=== PATIENT | female | born 1960 | race Caucasian/White ===

== ENCOUNTER 2025-01-17 06:09 | Observation (INO) ==
--- NOTE | 2025-01-10 16:10 | Anesthesiology Consultation ---
Date of Service January 10, 2025 Assessment & Plan (1) Encounter for pre-operative examination: Infectious disease screening: Per assessment on 01/10/25- No known recent infectious disease contacts or current infectious disease symptoms. Chart Review Chart Review: Acceptable Risk for Surgery and Patient NOT seen in Pre Admission Testing History Surgery Operation Date: 01/17/25 10:50 Proposed Procedures p Robotic Assisted Total Laparoscopic Hysterectomy, Bilateral Salpingo- Oophorectomy, Robotic Sacral Colpopexy and Cystoscopy - Dg Enriquez MD Height/Weight Height: 5 ft 9.5 in Weight: 95.254 kg Allergies Allergy/AdvReac Type Severity Reaction Status Date / Time No Known Allergies Allergy Verified 01/10/25 14:49 Medications Home Medications Medication Instructions Recorded Confirmed Last Taken docusate sodium 250 mg capsule 250 mg PO DAILY 01/10/25 01/10/25 Unknown (Stool Softener) magnesium oxide 250 mg PO DAILY 01/10/25 01/10/25 Unknown Past Medical History Medical History Anxiety r/t upcoming procedure Bilateral bunions Hiatal hernia "mild" Numbness and tingling of both feet Past Family History Family History Other No family history of adverse response to anesthesia Past Surgical History Surgical History History of bladder surgery 2023 - "bladder tack" History of excision of pilonidal cyst x2, in her 20's Hx of colonoscopy Social History Smoking Status: Never smoker Do You Dip or Chew Tobacco: No Hx Alcohol Use: Yes alcohol intake frequency: holidays/special occasions only Hx Substance Use: No substance use type: does not use Testing Laboratory Results 01/03/25 WBC 7.84 H/H 12.9/41.1 PLATELETS 338 SODIUM 140 POTASSIUM 4.1 CHLORIDE 100 CO2 25 BUN 13 CREATININE 0.7 GLUCOSE 91 Electrocardiogram Date: 01/03/25 Findings: + NSR @ (61)
--- NOTE | 2025-01-17 05:44 | History & Physical Report ---
Date of Service January 17, 2025 Assessment & Plan (1) Uterovaginal prolapse, incomplete: Plan: We initially attempted pessary placement however she was unable to tolerate it. She desires surgery. We discussed vaginal vs robotic approaches including risks and benefits. She elected for robotic hysterectomy, BSO, Sacral colpopexy, possible sling, and cystoscopy. Risks of infection, bleeding, injury, mesh exposure, chronic pain, urinary retention, and recurrence were discussed. All questions answered. Informed consent confirmed. Present on Admission?: Yes Admission and Anticipated Discharge Date Admission Date: 01/17/2025 Anticipated date of discharge: 01/18/25 History of Present Illness Chief Complaint: prolapse Primary Care Provider: NO PCP Ms. Adan is a 64 year old female presenting with concern of bladder prolapse. She reports pelvic pressure. She wears a thin pad liner and occasionally gets urine leakage. She uses one liner a day. She reports urinary leakage with strong coughs (like from a cold). She takes a stool softener to have one soft bowel movement a day. The patient has a history of 1 pregnancies and 1 children (vaginal). The patient denies using any topical estrogen or oral contraceptives. The patient denies a history of UTIs The patient drinks 2-3 cups of coffee a day. 1 packet of green tea. She is a nonsmoker. 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 She had an anterior colporrhaphy in November 2023 but then had a recurrence of her pelvic pressure symptoms and prolapse after resuming her regular activity. Allergies Allergy/AdvReac Type Severity Reaction Status Date / Time No Known Allergies Allergy Verified 01/10/25 14:49 Home Medications Medication Instructions Recorded Confirmed Type docusate sodium 250 mg capsule 250 mg PO DAILY 01/10/25 01/10/25 History (Stool Softener) magnesium oxide 250 mg PO DAILY 01/10/25 01/10/25 History Past Med/Surg History Problem List (Updated 01/17/25 @ 05:42 by Dg Enriquez MD) Uterovaginal prolapse, incomplete Encounter for pre-operative examination Medical History Anxiety r/t upcoming procedure Hiatal hernia "mild" Bilateral bunions Numbness and tingling of both feet Surgical History History of bladder surgery 2023 - "bladder tack" Hx of colonoscopy History of excision of pilonidal cyst x2, in her 20's Family History Other No family history of adverse response to anesthesia Social History Smoking Status: Never smoker Second Hand Exposure: No; Do You Dip or Chew Tobacco: No; Tobacco Cessation Education Requested by Patient: No Hx Alcohol Use: Yes Hx Substance Use: No Preferred Language: Lao Communication Ability: Effective Public Health Dietitian Required: No Beliefs That Will Affect Care: None Current Living Situation: Spouse Other Information That Helps Us Care for You: No Feels Safe at Home: Yes Safety Concerns: Feels Safe At This Time Assistive Devices: Glasses Review of Systems Review of Systems: All systems reviewed & are unremarkable except as noted in HPI & below Genitourinary: + urinary incontinence and + prolapse sy mptoms Physical Exam Constitutional: WD/WN, vitals as above Eyes: PERRL, conjunctivae normal, anicteric sclerae ENMT: external ear and nose normal, oropharynx normal Neck: trachea midline, no thyromegaly Respiratory: normal respiratory effort Cardiovascular: Rate/Rhythm: regular rate and regular rhythm Gastrointestinal (Abdomen): normal bowel sounds, soft, nontender, no hepatosplenomegaly Musculoskeletal: no cyanosis or clubbing, extremities motor strength 5/5 Skin: no rashes, warm and dry Psychiatric: A+Ox3, euthymic affect Results & Data Results & Data Laboratory Results Component Ref Range & Units (hover) 2 wk ago WBC 7.84 RBC 4.39 HGB 12.9 HCT 41.1 MCV 93.6 MCH 29.4 MCHC 31.4 RDW 14.4 PLT 338 MPV 10.1 Resulting Agency [facility] 57-10 Specimen Collected: 01/03/25 11:35 Last Resulted: 01/03/25 12:08 Component Ref Range & Units (hover) 2 wk ago BUN 13 CREATININE 0.7 EGFR >90 Comment: eGFR is calculated based on the CKD-EPI 2020 equation. SODIUM 140 POTASSIUM 4.1 CHLORIDE 100 CO2 25 ANION GAP 15 GLUCOSE 91 CALCIUM 10.1 Resulting Agency [facility] 57-10 Specimen Collected: 01/03/25 11:35 Last Resulted: 01/03/25 14:26 Code Status & VTE Plan VTE Prophylaxis Plan VTE Prophylaxis will be ordered: Yes
[2025-01-17] MEDS: metroNIDAZOLE 500 MG/100 ML BAG IV SCH (06:52)
[2025-01-17] MEDS: LR 15ML/HR IV SCH (06:52)
[2025-01-17] MEDS ORDERED: MIDAZOLAM HCL 1 MG/ML 2ML VIAL ONE (07:04)
[2025-01-17] MEDS ORDERED: LIDOCAINE 2% 2 ML VIAL/AMP(20MG/ML) INFIL ONE (07:07)
[2025-01-17] MEDS ORDERED: PROPOFOL IV EMULSION 10 MG/ML 20 ML VIAL IV ONE (07:07)
[2025-01-17] MEDS ORDERED: ROCURONIUM BROMIDE 10 MG/ML 5 ML VIAL IV ONE ×2 (07:38→08:37)
[2025-01-17] MEDS ORDERED: ATROPINE SULFATE 0.1 MG/ML 10ML SYR IV PRN (09:29)
[2025-01-17] MEDS ORDERED: HYDROmorphone INJ 2 MG/ML SYR/VIAL IV PRN (09:29)
[2025-01-17] MEDS ORDERED: PROMETHAZINE HCL 6.25 MG in SODIUM CHLORIDE 0.9% 50 ML IV PRN (09:29)
[2025-01-17] MEDS ORDERED: ONDANSETRON INJ 2 MG/ML 2 ML VIAL IV PRN ×2 (09:29→09:57)
[2025-01-17] MEDS: PREMARIN VAG CRM 14 APPLN/30 GM TUBE ONE (09:36)
[2025-01-17] MEDS: BUPIVACAINE 0.5 % 5 MG/1 ML MPF 30ML VIAL ONE (09:37)
[2025-01-17] MEDS ORDERED: MoRPHine SULFATE 2 MG/ML CARP ONE (09:38)
[2025-01-17] MEDS ORDERED: ONDANSETRON INJ 2 MG/ML 2 ML VIAL ONE (09:38)
[2025-01-17] MEDS ORDERED: SUGAMMADEX SODIUM 200 MG/2 ML VIAL IV ONE (09:38)
[2025-01-17] MEDS ORDERED: PROMETHAZINE 12.5 MG/50.5 ML BAG IV PRN (09:57)
--- NOTE | 2025-01-17 09:57 | Operative Report ---
Post Operative Report Pre & Post Diagnosis Operation Date: 01/17/25 07:30 Pre-Op Diagnosis: Ureterovaginal Prolapse Post-Op Diagnosis: Ureterovaginal Prolapse I identified the patient and participated in the time-out.: Yes Procedure Operation Date: 01/17/25 07:30 Actual Procedures p Robotic Assisted Total Laparoscopic Hysterectomy, Bilateral Salpingo-Oophore ctomy, Robotic Sacral Colpopexy and Cystoscopy(Not Applicable) - Dg Enriquez MD Surgeon Dg Enriquez MD Applied Psychology Teacher Angelita Melo PA-C Estimated Blood Loss 30 Findings Consistent with Post-Op Diagnosis Grade 3 uterovaginal prolapse. Normal appearing cervix, uterus, tubes and ovaries. Normal cystoscopy with excellent efflux of ureters bilaterally. Fluids crystalloid Specimens cervix, uterus, tubes, and ovaries Drains Ackerman catheter Anesthesia Type General Complications none Disposition Accompanied Patient To Recovery: Yes Disposition: Recovery Room Indications Recurrent symptomatic pelvic organ prolapse Description of Procedure After Nisha Adan was correctly identified in the preoperative area, the indications,risks,benefits, and alternatives were reviewed in detail. Desire for complete robotic hysterectomy including removal of tubes and ovaries, sacral colpopexy, and cystoscopy was confirmed. All questions answered and informed consent was confirmed. Patient was taken to the operating room and given general anesthesia per anesthesia service. She was prepped and draped in the usual sterile fashion. Time out was performed. A Ackerman catheter was placed for clear urine. The cervix was serially dilated and small cup v-care uterine manipulator was attached. At the umbilicus, an 8 mm incision was made and an 8mm robotic trocar with Optiview was advanced through the incision,past the fascia and peritoneum and into the abdominal cavity without difficulty. CO2 gas was used to insufflate the abdomen. Inspection revealed no adhesions. Two 8mm trocars were placed on the left and two 8mm trocars were placed on the right under direct visualization. Patient was placed in Trendelenburg position to allow the bowel to retract out the pelvis. The robot was docked. The ureters were well visualized bilaterally. The IP ligament was vessel sealed and tr ansected bilaterally. The round ligaments were vessel sealed and transected bilaterally. The bladder was dissected off the cervix. The uterine vessels were dissected from the broad ligament, vessel sealed and transected bilaterally for excellent hemostasis. The colpotomy incision was made following the cervical cup. The cervix, uterus, tubes, and ovaries were delivered out the vagina and sent to pathology as specimen. The vaginal cuff was closed with 0 V-lock suture in a running fashion in two layers. The bladder was dissected off the anterior vaginal wall for 6 cm distally. The posterior peritoneum was dissected off the posterior vaginal wall for 8 cm distally. The peritoneum overlying the sacrum was incised. The incision was extended along the right elva-colic gutter with excellent visualization of the right ureter and rectum. The anterior longitudinal ligament was well visualized below the sacral promontory. The Y mesh was secured to the posterior and anterior vaginal anders with 2-0 V- lock suture. The tail end of the y mesh was secured to the anterior longitudinal ligament below the sacral promontory with two interrupted sutures of 0 CVS suture. The peritoneum was closed over the mesh with 2-0 V-lock suture in a running fashion. Excellent hemostasis was confirmed. The robot was undocked and the trocars were removed under direct visualization and the skin incisions were closed with 4-0 Monocryl in a sub-cuticular fashion and dressed with surgical glue. Cystoscopy was performed with a 17 uruguayan 70 deg cystoscope with 250 ml of irrigation fluid. Inspection or the bladder dome, trigone, and urethra revealed no lesions. Excellent efflux of each ureter bilaterally was demonstrated. Crede maneuver did not reveal ERMA. The Ackerman catheter was placed. Inspection of the vagina revealed excellent support, hemostasis, and good closure of the cuff. Estrogen cream was applied to the vagina. All sponge,lap, and needle counts were correct. The patient was awakened, extubated, and sent to recovery in good condition. I attest to the content of the Intraoperative Record and any orders documented therein. Any exceptions are noted below. No qualified resident was available. Angelita Melo PA-C served as a necessary fast food assistant restaurant manager for patient positioning, draping, retraction, irrigation, robot docking, robot instrument exchange and wound closure.
[2025-01-17] MEDS: KETOROLAC 30 MG/ML VIAL IV ONE (10:10)
[2025-01-17] MEDS: KETOROLAC 30 MG/ML VIAL ONE (10:14)
--- NOTE | 2025-01-17 10:34 | Anesthesiology Progress Note ---
Date of Service January 17, 2025 Anesthesia Post Procedure Vital Signs Vital Signs: Temp Pulse Resp BP Pulse Ox O2 Del Method O2 Flow Rate 01/17/25 10:25 73 14 128/70 99 Oxymask 5 01/17/25 10:15 81 13 142/80 H 98 Oxymask 5 01/17/25 10:05 75 17 132/67 97 Oxymask 01/17/25 09:59 36.1 C L 79 17 110/74 97 Oxymask 01/17/25 06:10 36.7 C 69 18 129/64 98 Room Air Pain Intensity Abdomen: Pain Intensity: 5 Transfer of Care Handoff Completed per policy Notes Mental Status: alert / awake / arousable Patient Amnestic to Procedure: Yes Nausea / Vomiting: adequately controlled Pain: adequately controlled Airway Patency, RR, SpO2: stable & adequate BP & HR: stable & adequate Hydration State: stable & adequate Anesthetic Complications: no major complications apparent
[2025-01-17] MEDS ORDERED: Nursing to Pharmacy Communication SCH (11:45)
[2025-01-17] MEDS: ACETAMINOPHEN 325 MG TAB PO SCH (12:09)
--- NOTE | 2025-01-17 12:32 | Anesthesiology Progress Note ---
Date of Service January 17, 2025 Anesthesia Post Procedure Vital Signs Vital Signs: Temp Pulse Resp BP Pulse Ox O2 Del Method O2 Flow Rate 01/17/25 10:35 36.5 C 71 12 118/74 93 Room Air 01/17/25 10:25 73 14 128/70 99 Oxymask 5 01/17/25 10:15 81 13 142/80 H 98 Oxymask 5 01/17/25 10:05 75 17 132/67 97 Oxymask 01/17/25 09:59 36.1 C L 79 17 110/74 97 Oxymask 5 01/17/25 06:10 36.7 C 69 18 129/64 98 Room Air Pain Intensity Abdomen: Pain Intensity: 5 Transfer of Care Handoff Completed per policy Notes Mental Status: alert / awake / arousable Patient Amnestic to Procedure: Yes Nausea / Vomiting: adequately controlled Pain: adequately controlled Airway Patency, RR, SpO2: stable & adequate BP & HR: stable & adequate Hydration State: stable & adequate Anesthetic Complications: no major complications apparent
[2025-01-17] MEDS: IBUPROFEN 600 MG TAB PO SCH (16:01)
[2025-01-17] MEDS ORDERED: NON-FORMULARY MEDICATION (Docusate Sodium [Stool Softener] 250 mg Capsule) PO SCH (18:00)
[2025-01-18 07:16] LABS: Hematocrit (blood only) 37.0 % (37.0-47.0); Hemoglobin 11.7 g/dl (12.0-16.0); Immature Granulocytes # (auto) 0.02 K/uL (0.01-0.20); Immature Granulocytes % (auto) 0.3 %; Mean Corpuscular Hemoglobin 28.7 pg (25.0-34.0); Mean Corpuscular Volume 90.7 fL (80.0-100.0); Platelet Count 277 K/uL (130-400); RDW Standard Deviation 48.7 fL (36.4-46.3); Red Blood Count 4.08 M/uL (4.20-5.40); White Blood Count 7.93 K/ul (4.8-10.8)
--- NOTE | 2025-01-18 07:44 | Gynecologic Progress Note ---
Date of Service January 18, 2025 Assessment & Plan (1) Uterovaginal prolapse, incomplete: Plan: POD#1 s/p robotic hysterectomy, bso, sacral colpopexy, cystoscopy Doing well Procedure and findings reviewed with patient Post op instructions, follow up, reviewed. All questions answered Ackerman discontinued Then discharge home Present on Admission?: Yes Admission and Anticipated Discharge Date Admission Date: January 17, 2025 Anticipated date of discharge: 01/18/25 Subjective Feeling well. Denies SOB CP or Nausea. Pain well controlled with tylenol and motrin. Review of Systems Review of Systems: All systems reviewed & are unremarkable except as noted in HPI & below Physical Exam Constitutional: WD/WN, vitals as above Eyes: PERRL, conjunctivae normal, anicteric sclerae ENMT: external ear and nose normal, oropharynx normal Neck: trachea midline, no thyromegaly Respiratory: normal respiratory effort Cardiovascular: Rate/Rhythm: regular rate and regular rhythm Gastrointestinal (Abdomen): normal bowel sounds, soft, nontender, no hepatosplenomegaly Incisions non tender Musculoskeletal: no cyanosis or clubbing, extremities motor strength 5/5 Skin: no rashes, warm and dry Psychiatric: A+Ox3, euthymic affect Results & Data Vital Signs (Past 12 Hours) Vital Signs Temp Pulse Pulse Resp BP Pulse Ox O2 Del Method 01/18/25 03:45 Room Air 01/18/25 03:45 37.0 C 74 16 107/69 95 Room Air 01/17/25 23:05 37 C 72 16 115/57 L 94 Room Air 01/17/25 20:15 37.3 C 76 18 113/68 94 Room Air Laboratory Results WBC 7.9 Hgb 11.7 Hct 37 Plt 277
--- NOTE | 2025-01-18 07:49 | Discharge Summary ---
Date of Service January 18, 2025 Admission HPI Per Admitting Provider Ms. Adan is a 64 year old female presenting with concern of bladder prolapse. She reports pelvic pressure. She wears a thin pad liner and occasionally gets urine leakage. She uses one liner a day. She reports urinary leakage with strong coughs (like from a cold). She takes a stool softener to have one soft bowel movement a day. The patient has a history of 1 pregnancies and 1 children (vaginal). The patient denies using any topical estrogen or oral contraceptives. The patient denies a history of UTIs The patient drinks 2-3 cups of coffee a day. 1 packet of green tea. She is a nonsmoker. 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 She had an anterior colporrhaphy in November 2023 but then had a recurrence of her pelvic pressure symptoms and prolapse after resuming her regular activity. Admission Exam (Per Admitting) Constitutional WD/WN, vitals as above Eyes PERRL, conjunctivae normal, anicteric sclerae ENMT external ear and nose normal, oropharynx normal Neck trachea midline, no thyromegaly Respiratory normal respiratory effort Cardiovascular Rate/Rhythm: regular rate and regular rhythm Gastrointestinal (Abdomen) normal bowel sounds, soft, nontender, no hepatosplenomegaly Musculoskeletal no cyanosis or clubbing, extremities motor strength 5/5 Skin no rashes, warm and dry Psychiatric A+Ox3, euthymic affect Discharge Data Procedures Performed Operation Date: 01/17/25 07:30 Actual Procedures p Robotic Assisted Total Laparoscopic Hysterectomy, Bilateral Salpingo- Oophorectomy, Robotic Sacral Colpopexy and (Not Applicable) - Dg Enriquez MD s Cystoscopy(Not Applicable) - Dg Enriquez MD Hospital Course (1) Uterovaginal prolapse, incomplete: POD#1 s/p robotic hysterectomy, bso, sacral colpopexy, cystoscopy Doing well Procedure and findings reviewed with patient Post op instructions, follow up, reviewed. All questions answered Ackerman discontinued Then discharge home
[2025-01-18] MEDS: MAGNESIUM OXIDE 400 MG TAB PO SCH (07:50)
[2025-01-18] MEDS: DOCUSATE SODIUM 100 MG CAP PO SCH (07:50)
[2025-01-18 08:04] LABS: Anion Gap 5.0 (3-11); Blood Urea Nitrogen 14.0 mg/dl (6-23); Calcium 8.8 mg/dl (8.6-10.3); Carbon Dioxide 27.0 mmol/L (21-32); Chloride 102.0 mmol/L (98-107); Creatinine Clr Calc Pharmacy 93.9 ml/min; Glucose 102.0 mg/dl (70-99(Fasting)); Potassium 3.8 mmol/L (3.5-5.1); Sodium 134.0 mmol/L (136-145)
== END 2025-01-18 10:10 | disposition home or self-care (01) ==
LOC: 4E1 06:09 → ASU 06:09